=== PATIENT | male | born 1970 | race Caucasian/White ===

== ENCOUNTER 2016-06-28 15:23 | Day surgery (SDC) | payer OTHER ==
[~2016-06-28] VITALS: Ht 170.2 cm; Wt 77.2 kg
[2016-06-28 16:04] VITALS: Ht 170.2 cm; Wt 77.2 kg
[2016-06-28 16:05] VITALS: BP 146/93; PULSE 98; RESP 18
[2016-06-28] MEDS ORDERED: FENTAnyl 50 MCG/ML VIAL ONE (16:59)
[2016-06-28] MEDS ORDERED: MIDAZOLAM 1 MG/ML 2 ML INJ ONE ×3 (16:59→17:00)
[2016-06-28 17:00] VITALS: BP 123/81; PULSE 90; RESP 19
--- NOTE | 2016-06-28 17:17 | GILP ---
DATE OF PROCEDURE: 06/28/2016 NAME OF PROCEDURES: 1. Esophagogastroduodenoscopy and biopsy. 2. Colonoscopy. SURGEON: Hilario Hope MD PREOPERATIVE DIAGNOSES: 1. Abdominal pain. 2. Iron deficiency anemia. 3. Rectal bleeding. POSTOPERATIVE DIAGNOSES 1. Gastritis with erosions. 2. Gastric mucosal biopsies were taken for Helicobacter pylori test. 3. Small bowel biopsies were taken to rule out celiac disease. 4. Colonoscopy all the way to the cecum. 5. Internal hemorrhoids. INDICATION FOR THE PROCEDURE: Mr. Juan Del Rio is a 45-year-old male patient who had upper abdomin al pain not responding to therapy. He also had rectal bleeding and iron deficiency anemia. The [facility] was scheduled for endoscopy and colonoscopy for further evaluation. The procedures and possible complications are well explained to the patient. The patient understood and consented to the procedures. DESCRIPTION OF PROCEDURE: Under the influence of fentanyl and Versed, the gastroscope was carefully introduced into the esophagus and under direct vision, it was advanced to the stomach and through t he pylorus, into the duodenal bulb and descending duodenum. FINDINGS: ESOPHAGUS: The mucosa was normal. STOMACH: The patient had gastritis with erosions. Gastric mucosal biopsies were taken for H. pylor i test. DUODENUM: Normal. Small bowel biopsies were taken to rule out celiac disease. The colonoscope was carefully introduced in the rectum and under direct vision, it was advanced all the way to the cecum. FINDINGS: The patient had internal hemorrhoids. No colitis or neoplasm was identified. He tolerated the procedures very well and there was no complication from the procedures. At the end of the procedures, he was awake with stable vital signs, and he was discharged home to the care of his family. IMPRESSION: 1. Gastritis. 2. Gastric mucosal biopsies were taken for Helicobacter pylori test. 3. Small bowel biopsies were taken to rule out celiac disease. 4. Colonoscopy all the way to the cecum. 5. Internal hemorrhoids. PLAN: 1. Omeprazole 40 mg p.o. q.a.m. 2. Anusol-HC 2.5% cream at bedtime. 3. Await histopathology reports. Dictated By: HILARIO HOPE MD GD/NTS Conf#: [id number] DID#: [id number] CC: ARTEMIO WHITEHEAD MD;*EndCC*
--- NOTE | 2016-06-29 14:22 | CONS ---
DATE OF ADMISSION: 06/28/2016 DATE OF CONSULTATION: TYPE OF CONSULTATION: Preoperative gastroenterology. Dear Dr. Reyna: I thank you very much for this kind referral. HISTORY OF PRESENT ILLNESS: Mr. Juan Del Rio is a 45-year-old male patient who has been referred t o me for further evaluation of iron deficiency anemia. The patient also gives history of rectal ble eding. There is no past history of colon neoplasm or inflammatory bowel disease. His appetite has been good and he is not losing any weight. He also complains of epigastric pain. There is no past history of peptic ulcer disease. He is not taking any nonsteroidal anti-inflammatory agents. There is no history of gallstones. He does not have any fever, chills or jaundice. There is no history of liver disease. He is not a hypertensive or diabetic. He does not have any heart disease or lung problem. There is no history of kidney disease. SOCIAL HISTORY: He is a nonsmoker. He does not abuse alcohol. FAMILY HISTORY: Negative for gastrointestinal tract neoplasm. ALLERGIES: THERE IS NO HISTORY OF SIGNIFICANT DRUG ALLERGY. MEDICATIONS: None. PHYSICAL EXAMINATION: GENERAL: He is 5 feet 7 inches tall and he weighs 175 pounds. HEART: Examination of the heart reveals normal first and second heart sounds. LUNGS: Clear. ABDOMEN: Soft without any distention. Liver and spleen are not palpable. There are no masses. Th ere is no focal tenderness. Normal bowel sounds are heard. RECTAL: Examination deferred per the patient's request. It will be done at the time of colonoscopy . CENTRAL NERVOUS SYSTEM: Does not reveal any focal neurological deficit. IMPRESSION: 1. Iron deficiency anemia. 2. History of rectal bleeding. 3. Upper abdominal pain. PLAN: 1. Endoscopic and colonoscopy for further evaluation. 2. He will check CBC and CMP. The procedures and possible complications are well explained to the patient. The patient understand s and consents to the procedures. I thank you once again. With warmest personal regards, Dictated By: HILARIO MONTGOMERY/ALEXIS Conf#: [id number] DID#: [id number]
== END 2016-06-28 17:35 | disposition home or self-care (01) ==
LOC: GIL 15:23
PROVIDERS: ATTEND Internal Medicine Gastroenterology
DX: K29.60 Other gastritis without bleeding (principal); K64.8 Other hemorrhoids; B96.81 Helicobacter pylori [H. pylori] as the cause of diseases classified elsewhere; G50.9 Disorder of trigeminal nerve, unspecified
CPT/HCPCS: 43239; 45378; 87081; 88305; J2250; J3010; Z7610